=== PATIENT | male | born 1955 | race Caucasian/White ===

== ENCOUNTER 2019-02-15 12:07 | Outpatient (CLI) | payer MEDICARE, BC ==
[~2019-02-15 12:07] MED LIST: ASPI-650 PO; DILT240C2 PO; REGADENOSON 0.4 MG/5 ML SYRINGE ONE
[2019-02-15] MEDS ORDERED: TIZA2TAB2 PO (20:25)
[2019-02-15] MEDS ORDERED: OMEP20TA62 PO (20:28)
[2019-02-15] MEDS ORDERED: DIGO125T PO (20:28)
[2019-02-17] MEDS ORDERED: ASPI-515 PO (15:27)
[2019-02-17] MEDS ORDERED: METO25TA35 PO (15:27)
[2019-02-17] MEDS ORDERED: OMEP-110 PO (15:27)
== END 2019-02-15 23:59 | disposition home or self-care (01) ==
LOC: CFH 12:07
PROVIDERS: ATTEND Registered Nurse
DX: Z02.9 Encounter for administrative examinations, unspecified (principal)
CPT/HCPCS: J2785

== ENCOUNTER → 2020-02-28 | Outpatient (CLI) | payer MEDICARE, BC ==
[~2020-02-28] MED LIST changes: +AMINOPHYLLINE 25 MG/ML, 10ML ONE; +ASPI-515 PO; +DIGO125T85 PO; +METO25TA35 PO; +OMEP-110 PO; +OMEP20TA62 PO; +TIZA2TAB4 PO
== END | disposition home or self-care (01) ==
LOC: CVU 11:02
PROVIDERS: ATTEND Internal Medicine Cardiovascular Disease
DX: R07.89 Other chest pain (principal); I48.91 Unspecified atrial fibrillation
CPT/HCPCS: 78452; 93017; A9502; J0280; J2785